=== PATIENT | female | born 1965 | race Caucasian/White ===

== ENCOUNTER 2022-03-30 04:08 | Day surgery (SDC) | payer OTHER ==
[2022-03-26 11:23] VITALS: BMI 30.1
[2022-03-30] MEDS ORDERED: PROPOFOL 20 ML ONE (13:52)
[2022-03-30] MEDS ORDERED: MIDAZOLAM HCL 2 MG/2 ML SINGLE DOSE VIAL ONE (13:52)
[2022-03-30] MEDS ORDERED: ONDANSETRON 4 MG/2 ML VIAL IVPUSH PRN (14:21)
[2022-03-30] MEDS ORDERED: LACTATED RINGERS SOLUTION 1,000 ML IV SCH (14:30)
[2022-03-30 16:19] VITALS: RESP 18
[2022-03-30 17:22] VITALS: BP 119/64; PULSE 74; TEMP 97.4
== END 2022-03-30 17:05 | disposition home or self-care (01) ==
LOC: JASU-SURG 04:08
PROVIDERS: ATTEND Urology
PROC: 0T7D8ZZ Dilation of Urethra, Via Natural or Artificial Opening Endoscopic (ICD-10-PCS; principal; 2022-03-30 13:30)
DX: R31.29 Other microscopic hematuria (principal); N35.92 Unspecified urethral stricture, female
CPT/HCPCS: 82962; 94760

== ENCOUNTER 2024-03-06 04:15 | Day surgery (SDC) | payer OTHER ==
[2024-03-02 11:01] VITALS: BMI 29.9
[2024-03-06] MEDS ORDERED: BUPIVACAINE HCL/PF 0.25% (2.5MG/ML) 10 ML VIAL ONE (07:58)
[2024-03-06] MEDS ORDERED: ROCURONIUM BROMIDE 50 MG/5 ML SYRINGE ONE (08:09)
[2024-03-06] MEDS ORDERED: SUCCINYLCHOLINE CHLORIDE 200 MG/10 ML SYRINGE ONE (08:09)
[2024-03-06] MEDS ORDERED: PROPOFOL 20 ML ONE (08:09)
[2024-03-06] MEDS ORDERED: MIDAZOLAM HCL 2 MG/2 ML SINGLE DOSE VIAL ONE (08:09)
[2024-03-06] MEDS: ceFAZolin SODIUM 1 GM VIAL IVPB ONE (08:40)
[2024-03-06] MEDS ORDERED: NEOSTIGMINE METHYLSULFATE 0.5 MG/1 ML - 10 ML MDV ONE (09:02)
[2024-03-06] MEDS: BUPIVACAINE HCL/PF 0.25% (2.5MG/ML) 10 ML VIAL IJ ONE (09:12)
[2024-03-06] MEDS ORDERED: ONDANSETRON 4 MG/2 ML VIAL IVPUSH PRN (09:36)
[2024-03-06] MEDS ORDERED: oxyCODONE HCL 5 MG TABLET PO PRN (09:36)
[2024-03-06] MEDS ORDERED: ALBUTEROL SO4 0.083% IH SOL 2.5 MG/3 ML VIAL.NEB. NEB PRN (09:37)
[2024-03-06] MEDS ORDERED: LACTATED RINGERS SOLUTION 1,000 ML IV SCH (09:45)
[2024-03-06] MEDS: ACETAMINOPHEN 1000 MG/100 ML BAG IVPB ONE (10:16)
[2024-03-06] MEDS: ACETAMINOPHEN INJECTION 100 ML ONE (10:16)
[2024-03-06 10:25] VITALS: RESP 18
[2024-03-06 11:13] VITALS: TEMP 97.4
[2024-03-06 13:10] VITALS: BP 115/72; PULSE 76
== END 2024-03-06 13:36 | disposition home or self-care (01) ==
LOC: JASU-SURG 04:15
PROVIDERS: ATTEND Surgery
PROC: 0JB80ZZ Excision of Abdomen Subcutaneous Tissue and Fascia, Open Approach (ICD-10-PCS; principal; 2024-03-06 08:00)
DX: R19.8 Other specified symptoms and signs involving the digestive system and abdomen (principal); L92.8 Other granulomatous disorders of the skin and subcutaneous tissue; T81.89XA Other complications of procedures, not elsewhere classified, initial encounter; X58.XXXA Exposure to other specified factors, initial encounter; Y92.9 Unspecified place or not applicable; Y93.9 Activity, unspecified
CPT/HCPCS: 82962; 88305-TC; 94760; J0131